=== PATIENT | male | born 1950 | race Two or more races ===

== ENCOUNTER 2020-06-23 11:29 | Inpatient (IN) | payer MEDICARE, OTHER ==
[~2020-06-23] VITALS: Ht 165.1 cm; Wt 71.2 kg
--- NOTE | 2020-06-23 11:36 | NUR ---
jasson [phone] sister
--- NOTE | 2020-06-23 11:40 | NUR ---
SEEN AND EXAMINED BY .
[2020-06-23 11:56] LABS: BASOPHILS # (AUTO) 0.1 /CMM (0.0-0.2); BASOPHILS % (AUTO) 1.1 % (0.0-2.0); EOSINOPHILS % (AUTO) 0.2 % (0.0-6.0); HEMATOCRIT 40 % (39-51); HEMOGLOBIN 13.2 g/dL (13.5-17.5); LYMPHOCYTES % (AUTO) 24.9 % (20.0-44.0); MEAN CORPUSCULAR HGB CONC 33 g/dl (31.0-36.0); MEAN CORPUSCULAR VOLUME 102 fL (80-96); MONOCYTES # (AUTO) 1.1 /CMM (0.1-1.30); MONOCYTES % (AUTO) 13.7 % (2.0-12.0); NEUTROPHILS # (AUTO) 4.9 /CMM (1.8-8.9); NEUTROPHILS % (AUTO) 60.1 % (43.0-81.0); PLATELET COUNT (AUTO) 148 /CMM (150-450); RED BLOOD CELL COUNT(AUTO) 3.92 MIL/uL (4.5-6.0); WHITE BLOOD COUNT (AUTO) 8.1 K/uL (4.3-11.0)
[2020-06-23 12:03] LABS: APPEARANCE,URINE Clear (CLEAR); BILIRUBIN,URINE Negative (NEGATIVE); BLOOD, URINE Moderate Ery/uL (NEGATIVE); COLOR,URINE Yellow (YELLOW); KETONES,URINE 15 (NEGATIVE); LEUKOCYTE ESTERASE ,URINE Negative (NEGATIVE); NITRITE, URINE Negative (NEGATIVE); PROTEIN,URINE 30 mg/dl (NEGATIVE); UGLUCOSE Negative (NEGATIVE)
[2020-06-23 12:03] LABS: CALCIUM, SERUM 9.6 mg/dL (8.5-10.1); CARBON DIOXIDE 26 mmol/L (21-32); CHLORIDE 103 mmol/L (98-107); GLUCOSE 169 mg/dL (74-106); POTASSIUM 4.2 mmol/L (3.5-5.1); SODIUM SERUM 139 mmol/L (136-145); UREA NITROGEN, BLOOD 19 mg/dL (7-18)
--- NOTE | 2020-06-23 12:05 | NUR ---
[id number] frm snf for noted o2 desaturation today. covid + 06/03/20. 98% on nr tachy hot to touch [employer]. PT NON VERBAL, EYES OPEN. 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 PLACED ON O2 15L NR, O2 SAT 98%. PT SEEN & EVAL'D BY DR. NORRIS, WILL CONT TO MONITOR.
[2020-06-23 12:14] LABS: BACTERIA,URINE 1+ /HPF (None Seen); RBC,URINE 21-50 /HPF (0-2); WBC,URINE NONE SEEN /HPF (0-3)
[2020-06-23 12:16] LABS: ALANINE AMINOTRANSFERASE 15 U/L (12-78); ALBUMIN 2.9 g/dL (3.4-5.0); ALKALINE PHOSPHATASE 69 U/L (46-116); ASPARTATE AMINOTRANSFERASE 22 U/L (15-37); B-TYPE NATRIURETIC PEPTIDE 560 PG/ML (0-125); BILIRUBIN,TOTAL 0.5 mg/dL (0.2-1.0); TOTAL PROTEIN, SERUM 8.9 g/dL (6.4-8.2)
[2020-06-23 12:27] LABS: D-DIMER 1.33 mg/L(FEU (0.17-0.50)
[2020-06-23] MEDS ORDERED: CEFTRIAXONE 1GM BAG (ER ONLY) 50 ML IV ONE ×2 (12:30→12:38)
[2020-06-23] MEDS ORDERED: AZITHROMYCIN 500 MG in IV D5W 250 ML IV ONE (12:30)
[2020-06-23] MEDS ORDERED: IV NS 0.9% 1,000 ML IV ONE (12:30)
[2020-06-23] MEDS ORDERED: AZITHROMYCIN 500 MG VIAL ONE (12:39)
--- NOTE | 2020-06-23 13:00 | NUR ---
MEDICATED PER ERMD ORDER, PT ANNA WELL. PT STABLE, NAD NOTED AT THIS TIME.
--- NOTE | 2020-06-23 13:35 | NUR ---
PT GIVEN BED 109
--- NOTE | 2020-06-23 13:35 | NUR ---
CALLED [facility], PAGED DR MUJICA FOR ADMISSION
--- NOTE | 2020-06-23 13:54 | NUR ---
CALLED [facility]. ON MANI WAS PAGED.
[2020-06-23] MEDS ORDERED: ESCI5TAB PO (14:33)
[2020-06-23] MEDS ORDERED: BISA10SU61 RC (14:33)
[2020-06-23] MEDS ORDERED: MAGN400O6 PO (14:33)
[2020-06-23] MEDS ORDERED: ASCO500C16 PO (14:33)
[2020-06-23] MEDS ORDERED: NA P133E RC (14:33)
[2020-06-23] MEDS ORDERED: DIVA500T54 PO (14:33)
[2020-06-23] MEDS ORDERED: ALBU1.257 IH (14:33)
[2020-06-23] MEDS ORDERED: ASPI-1169 PO (14:33)
[2020-06-23] MEDS ORDERED: DOCU-141 PO (14:33)
[2020-06-23] MEDS ORDERED: FERR325T23 PO (14:33)
[2020-06-23] MEDS ORDERED: ATOR20TA PO (14:33)
[2020-06-23] MEDS ORDERED: ACET325C7 PO (14:33)
[2020-06-23] MEDS ORDERED: LISI10TA5 PO (14:33)
[2020-06-23] MEDS ORDERED: FOLI0.8C PO (14:33)
[2020-06-23] MEDS ORDERED: MULT-439 PO (14:34)
[2020-06-23 14:35] LABS: BILIRUBIN,DIRECT 0.1 mg/dL (0.0-0.2)
[2020-06-23 14:39] LABS: CREATINE KINASE, TOTAL 75 U/L (39-308); FERRITIN 1817 ng/mL (8-388)
[2020-06-23] MEDS ORDERED: RISP1TAB27 PO (14:45)
[2020-06-23] MEDS ORDERED: AMIN887L PO (14:45)
[2020-06-23] MEDS ORDERED: OMEP20TA5 PO (14:45)
[2020-06-23] MEDS ORDERED: CALC-17 PO (14:45)
[2020-06-23] MEDS ORDERED: ZINC1CAP3 PO (14:45)
[2020-06-23 14:46] LABS: C-REACTIVE PROTEIN 4.8 mg/dL (0.0-0.9)
--- NOTE | 2020-06-23 14:47 | NUR ---
[facility]O SERVIN PT CAME FROM [facility] PHONE [phone] FAX [phone] CONFIRMED WITH TARYN.
--- NOTE | 2020-06-23 15:21 | NUR ---
report given to moisés ratliff. awaiting transfer to floor.
[2020-06-23 16:30] VITALS: BP 177/100
[2020-06-23] MEDS ORDERED: FEE EMEERGENCY 1 MIN EA MC ONE (16:54)
[2020-06-23] MEDS ORDERED: SODIUM BICARBONATE SYR 50 MEQ/50 ML DISP.SYRIN IV ONE (16:54)
[2020-06-23] MEDS ORDERED: EPINEPHRINE (1:10,000) SYRINGE 1 MG/10 ML DISP.SYRIN IVP ONE (16:54)
--- NOTE | 2020-06-23 18:30 | NUR ---
RN NOTE: Endorsement over the phone received by Nurse from ER staff beforehand. Patient was noted to be COVID + from [facility] with chief complaint for admission as oxygen desaturation, patient was put on Non Rebreather mask @ 15lpm with saturation @ 98% reported from ER. Patient was transferred by ED staff and was received by nurse in bed @ 16:12. Patient was non verbal, noted to be labored in breathing with mumbling and grunting sounds heard from patient. Patient with cont. o2 via NC @ 6lpm noted. Patient feels warm to touch, noted with diaphoresis and cooler extremities. Epps catheter that was in place had reddish-orange urine draining. Inital V/S with values noted as: HR of 165bpm, BP: 179/100mmhg, RR: 28, 02 saturation at 86%, axillary temp @ 100.4. V/S rechecked and 2nd read was HR of 165bpm, BP: 170/85mmhg, RR: 29, 02 saturation at 79%, axillary temp @ 100.6. Rapid Bilateral radial and femoral pulses noted. Rapid response called at 1630 for worsening patient condition. Patient was started to be suctioned with thin bloody secretions noted and dried up blood noted on gums and mouth as well and to be put on non rebreather @ 15lpm. Code blue started on 1634 as patient was observed with more pallor, diaphragmatic breathing and with no pulse. Patient was pronounced @[address] Barrie Ambrocio after unsuccessful attempts to intubate and with no return of pulse. Family (Una, Sister) was made aware by Charge Nurse of outcome. reported to Cableway Operator's office and received by Shalom Gibson as well as [facility] and received by Kemi Lamar and both organizations released the body. Pieces of what looked like meat was discovered from apparatus used in intubation as well as stuck on patient's dentures. Post mortem care done and patient's belongings (upper denture and heel floaters) set aside for transport with body. [place] pick[place] box [place] [facility] [place]
--- NOTE | 2020-06-23 19:30 | NUR ---
rn note: Patient picked up by security staff [place] [facility] [place]
== END 2020-06-23 16:55 | disposition expired | DRG 871 ==
LOC: ER 11:31 → TELE1 15:46
PROC: 5A12012 Performance of Cardiac Output, Single, Manual (ICD-10-PCS; principal; 2020-06-23)
DX: A41.9 Sepsis, unspecified organism (principal); J96.01 Acute respiratory failure with hypoxia; E87.2 Acidosis; E44.1 Mild protein-calorie malnutrition; I69.351 Hemiplegia and hemiparesis following cerebral infarction affecting right dominant side; D69.6 Thrombocytopenia, unspecified; D75.89 Other specified diseases of blood and blood-forming organs; E88.09 Other disorders of plasma-protein metabolism, not elsewhere classified; J44.9 Chronic obstructive pulmonary disease, unspecified; K21.9 Gastro-esophageal reflux disease without esophagitis; G40.909 Epilepsy, unspecified, not intractable, without status epilepticus; E11.9 Type 2 diabetes mellitus without complications; Z68.26 Body mass index [BMI] 26.0-26.9, adult; T17.920A Food in respiratory tract, part unspecified causing asphyxiation, initial encounter; X58.XXXA Exposure to other specified factors, initial encounter; Y93.9 Activity, unspecified; Y92.89 Other specified places as the place of occurrence of the external cause; Z53.8 Procedure and treatment not carried out for other reasons
CPT/HCPCS: 36415; 71045-TC; 80053-TC; 81000-TC; 82248-TC; 82550-TC; 82728-TC; 82962-TC; 83605-TC; 83615-TC; 83880; 84484-TC; 85025-TC; 85378-TC; 85730-TC; 86140-TC; 87040-TC; 87081-TC; 87086-TC; G0378; J0171; J0456; J0696; J3490; J7030; J7060; U0003-CS